=== PATIENT | female | born 1950 | race Caucasian/White ===

== ENCOUNTER → 2017-03-29 | Outpatient (CLI) | payer OTHER ==
[~2017-03-29] MED LIST: NO DOZ200 MG
== END | disposition home or self-care (01) ==
DX: M17.12 Unilateral primary osteoarthritis, left knee (principal); R29.3 Abnormal posture; R26.9 Unspecified abnormalities of gait and mobility; M79.605 Pain in left leg; M25.562 Pain in left knee; M25.662 Stiffness of left knee, not elsewhere classified; M62.81 Muscle weakness (generalized); Z74.1 Need for assistance with personal care
CPT/HCPCS: 97110 GP; 97150 GO; 97161 GP; 97165 GO

== ENCOUNTER 2017-04-17 22:08 | Inpatient (IN) | payer OTHER ==
[~2017-04-17] VITALS: Ht 152.4 cm; Wt 66.0 kg
[2017-04-18 07:21] VITALS: BP 107/55
[2017-04-18 14:14] LABS: MCH 32.9 PG (29.0-34.0); MCHC 34.1 G/DL (30.0-36.0); MCV 96.5 FL (83-99); MEAN PLAT.VOLUME 9.7 uM^3 (9.5-12.4); PLATELET COUNT 257 K/uL (156-360); RBC DIS.WIDTH-CV 11.4 % (11.8-14.6); RBC DIS.WIDTH-SD 40.4 % (39-53); RED BLOOD COUNT 4.04 M/uL (3.80-5.20); WHITE BLOOD COUNT 12.7 K/uL (4.1-10.2)
[2017-04-18 15:11] VITALS: BP 124/73
[2017-04-18 20:04] VITALS: BP 127/63
[2017-04-18 23:31] VITALS: BP 155/87
[2017-04-19 04:22] VITALS: BP 120/65
[2017-04-19 05:10] LABS: HEMATOCRIT 36.2 % (36.0-46.0); MCV 95.8 FL (83-99)
[2017-04-19 05:44] LABS: ANION GAP 7 MEQ/L (2-14); CHLORIDE 108 MEQ/L (99-109); GFR ESTIMATE (CALCULATED) > 59 mL/min/; GLUCOSE 126 mg/dL (70-99); POTASSIUM 3.8 MEQ/L (3.7-5.4); SAMPLE HEMOLYSIS CHECK 0; SAMPLE ICTERIC CHECK 0; SAMPLE LIPEMIA CHECK 0; SODIUM 140 MEQ/L (136-147); UREA NITROGEN (BUN) 10 mg/dL (9-23)
[2017-04-19 08:11] VITALS: BP 129/80
[2017-04-19 11:54] VITALS: BP 127/58
[2017-04-19 15:55] VITALS: BP 149/72
[2017-04-19 20:02] VITALS: BP 145/73
[2017-04-20] VITALS: BP 131/68
[2017-04-20 04:00] VITALS: BP 143/75
[2017-04-20 05:37] LABS: HEMATOCRIT 37.3 % (36.0-46.0); MCV 98.2 FL (83-99)
[2017-04-20] MEDS ORDERED: LOVENOX40 MG/0.4 SC (08:15)
[2017-04-20] MEDS ORDERED: HYDROCODON-ACE1 EAC7 PO (08:15)
[2017-04-20] MEDS ORDERED: SENNA PLUS TAB1 EACH PO (08:15)
[2017-04-20 08:22] VITALS: BP 123/60
[2017-04-20 12:00] VITALS: BP 125/60
== END 2017-04-20 15:40 | DRG 468 ==
LOC: ENRESERV 22:08 → 2SOUTH 04-18 06:42 → 3WEST 04-18 06:42 → 2SOUTH 04-18 08:47 → 3WEST 04-18 14:39 → 2SOUTH 04-18 15:16 → 3WEST 04-20 15:40
PROVIDERS: Orthopaedic Surgery
DX: T84.093A Other mechanical complication of internal left knee prosthesis, initial encounter (principal); E78.00 Pure hypercholesterolemia, unspecified; Z88.0 Allergy status to penicillin; Z88.2 Allergy status to sulfonamides; M19.90 Unspecified osteoarthritis, unspecified site; M25.562 Pain in left knee
CPT/HCPCS: 73560; 80048; 85014; 85018; 85027; 97530 GO; C1713; C1776; J0330; J0690; J1100; J1170; J1650; J2405; J2765; J3010; J7050